=== PATIENT | male | born 1975 | race Caucasian/White ===

== ENCOUNTER 2016-12-20 22:31 | Emergency (ER) | payer BC ==
--- NOTE | ~2016-12-20 | CR94 ---
[facility]. [facility] A Service of [facility] & [facility] [place] RADIOLOGY TEXT RESULTS PATIENT: RADHA MAX LOCATION: SED : [birth year] UNIT #: [id number] AGE: [address]: CURT MATHEW SEX: M ORDER DR: [id number] [place] [id number] E MR#: [id number] Acc #: [id number] NAME: RADHA MAX : 1975 SEX: M STUDY DATE/TIME: 12/21/2016 0:47 UNIT: SED ROOM: STUDY DESCRIPTION: CR Elbow Min 3 Views Rt Attending Physician: Curt Mathew Ordering Physician: Curt Mathew Primary Care Physician: Gaurang Holcomb M.D. MEDICAL IMAGING REPORT This report is preliminary unless electronic signature is present. EXAM Right elbow series INDICATION Right elbow pain and swelling for the past month. PROCEDURE 3 views of the right elbow. FINDINGS No acute fracture or dislocation. IMPRESSION No acute findings. Dictated by... Adrian Blanca M.D. THIS IS AN ELECTRONICALLY VERIFIED REPORT Adrian Blanca M.D. at 12/21/2016 10:08 PM Amber TD: 12/21/2016 10:05 JOB #: [id number] MEDICAL IMAGING REPORT Page 1 of 1
[~2016-12-20 22:31] MED LIST: ALLOPURINOL300 MG PO; LISINOPRIL20 MG PO; LOVASTATIN20 M2 PO
== END 2016-12-21 01:50 | disposition home or self-care (01) ==
LOC: SED 22:31
DX: M70.21 Olecranon bursitis, right elbow (principal); I10 Essential (primary) hypertension; Z91.14 Patient's other noncompliance with medication regimen; E78.5 Hyperlipidemia, unspecified; F17.210 Nicotine dependence, cigarettes, uncomplicated; M10.9 Gout, unspecified
CPT/HCPCS: 73080; 99283